=== PATIENT | female | born 1940 | race Caucasian/White ===

== ENCOUNTER 2017-10-21 17:03 | Inpatient (IN) | payer MEDICARE, MEDICAID ==
[~2017-10-21] VITALS: Ht 162.6 cm; Wt 48.1 kg
[2017-10-21] MEDS ORDERED: SODIUM CHLORIDE FLUSH 10ML SYR IVF ONE (18:00)
[2017-10-21] MEDS ORDERED: SODIUM CHLORIDE 0.9% 1,000ML IVBOLUS ONE (18:00)
[2017-10-21] MEDS: NYSTATIN 500,000 UNITS/5 ML UDC PO SCH ×2 (18:13→23:36)
[2017-10-21 18:28] LABS: BASOPHILS # (AUTO) 0.06 x10^3/uL (0-0.1); BASOPHILS % (AUTO) 1 % (0-1); EOSINOPHILS # (AUTO) 0.13 x10^3/uL (0-0.4); EOSINOPHILS % (AUTO) 2 % (1-7); LYMPHOCYTES # (AUTO) 2.81 x10^3/uL (1-3.4); LYMPHOCYTES % (AUTO) 38 % (22-44); MD NO; MEAN CORPUSCULAR HEMOGLOBIN 31.2 pg (27.0-34.8); MEAN CORPUSCULAR HGB CONC 32.5 g/dL (32.4-35.8); MEAN CORPUSCULAR VOLUME 96.1 fL (80-100); MEAN PLATELET VOLUME 8.4 fL (7.4-10.4); MONOCYTES # (AUTO) 0.74 x10^3/uL (0.2-0.8); MONOCYTES % (AUTO) 10 % (2-9); NEUTROPHILS % (AUTO) 50 % (42-75); PLATELET COUNT 359 x10^3/uL (130-400); RED BLOOD COUNT 3.56 x10^6/uL (3.82-5.3); RED CELL DISTRIBUTION WIDTH 16.2 % (9.6-15.2)
[2017-10-21 18:34] LABS: ALBUMIN 2.2 g/dL (3.4-5.0); ANION GAP 7 mmol/L (5-15); CHLORIDE 107 mmol/L (98-107)
[2017-10-21 18:35] LABS: SALICYLATE LEVEL < 1.7 mg/dL (2.8-20.0)
[2017-10-21 18:40] LABS: ACETAMINOPHEN 6 mcg/mL (10-30); ALANINE AMINOTRANSFERASE 33 U/L (12-78); ALKALINE PHOSPHATASE 187 U/L (45-117); BILIRUBIN,TOTAL 0.4 mg/dL (0.2-1.0); CREATININE 0.46 mg/dL (0.55-1.02); TROPONIN I < 0.015 ng/mL (0.000-0.045)
[2017-10-21 19:01] LABS: MICROSCOPIC NOT IND
[2017-10-21 19:05] LABS: CULTURE INDICATED? NO
[2017-10-21] MEDS ORDERED: VENL37.52 PO (19:22)
[2017-10-21] MEDS ORDERED: ATOR10TA9 PO (19:23)
[2017-10-21] MEDS ORDERED: METF100P3 PO (19:24)
[2017-10-21] MEDS ORDERED: OXYB5TAB33 PO (19:25)
[2017-10-21] MEDS ORDERED: NYST1POW PO (19:26)
[2017-10-21] MEDS ORDERED: FAMO10TA77 PO (19:27)
[2017-10-21] MEDS: CLOTRIMAZOLE TROCHES 10 MG PO SCH (21:00)
[2017-10-21] MEDS: INSULIN LISPRO 100 UNITS/ML, PEN SQ-INSULIN SCH (21:00)
[2017-10-21] MEDS: OXYBUTYNIN CHLORIDE 5 MG TABLET PO SCH (21:00)
[2017-10-21] MEDS ORDERED: ACETAMINOPHEN 325 MG TABLET PO PRN (21:00)
[2017-10-21] MEDS ORDERED: hydrALAzine 20 MG/ML, 1ML IVPush PRN (21:00)
[2017-10-21 21:47] VITALS: BP 147/71
[2017-10-21 22:00] VITALS: BP 147/71
[2017-10-21] MEDS: D5%-0.45% NACL 1,000 ML IV SCH (22:36)
[2017-10-21] MEDS: ENOXAPARIN 40 MG/0.4 ML SQ SCH (22:45)
[2017-10-21] MEDS ORDERED: FLUCONAZOLE 200 MG/100 ML 100 ML IV ONE (23:38)
[2017-10-22 02:59] VITALS: BP 119/54
[2017-10-22] MEDS: NYSTATIN 500,000 UNITS/5 ML UDC PO SCH (05:36)
[2017-10-22] MEDS: CLOTRIMAZOLE TROCHES 10 MG PO SCH ×5 (05:46→20:54)
[2017-10-22] MEDS: INSULIN LISPRO 100 UNITS/ML, PEN SQ-INSULIN SCH ×3 (07:00→21:00)
[2017-10-22 08:44] VITALS: BP 122/61
[2017-10-22] MEDS: OXYBUTYNIN CHLORIDE 5 MG TABLET PO SCH ×2 (09:00→20:54)
[2017-10-22] MEDS: MICAFUNGIN 100 MG in SODIUM CHLORIDE 0.9% 100 ML IV SCH (10:14)
[2017-10-22] MEDS: D5%-0.45% NACL 1,000 ML IV SCH (12:35)
[2017-10-22 14:27] VITALS: BP 144/70
[2017-10-22 17:21] LABS: CLOSTRIDIUM DIFFICILE ANTIGEN POSITIVE; CLOSTRIDIUM DIFFICILE TOXIN NEGATIVE (Negative)
[2017-10-22] MEDS: metroNIDAZOLE 500 MG TABLET PO SCH ×2 (17:58→20:53)
[2017-10-22 19:10] VITALS: BP 137/66
[2017-10-22] MEDS ORDERED: METRONIDAZOLE PMX 500MG/100ML 100 ML IV ONE (21:00)
[2017-10-22] MEDS: ENOXAPARIN 40 MG/0.4 ML SQ SCH (21:29)
[2017-10-23] MEDS ORDERED: FLUCONAZOLE 100MG/50ML 100 MG in BAG 1 EACH IV SCH
[2017-10-23] MEDS: D5%-0.45% NACL 1,000 ML IV SCH (00:35)
[2017-10-23 01:07] VITALS: BP 129/62
[2017-10-23] MEDS: INSULIN LISPRO 100 UNITS/ML, PEN SQ-INSULIN SCH ×4 (03:00→20:58)
[2017-10-23] MEDS: metroNIDAZOLE 500 MG TABLET PO SCH ×2 (06:00→11:00)
[2017-10-23] MEDS: CLOTRIMAZOLE TROCHES 10 MG PO SCH ×5 (06:00→20:59)
[2017-10-23 07:17] LABS: BASOPHILS # (AUTO) 0.04 x10^3/uL (0-0.1); BASOPHILS % (AUTO) 0 % (0-1); EOSINOPHILS # (AUTO) 0.04 x10^3/uL (0-0.4); EOSINOPHILS % (AUTO) 0 % (1-7); LYMPHOCYTES # (AUTO) 1.76 x10^3/uL (1-3.4); LYMPHOCYTES % (AUTO) 19 % (22-44); MD NO; MEAN CORPUSCULAR HEMOGLOBIN 30.4 pg (27.0-34.8); MEAN CORPUSCULAR HGB CONC 32.1 g/dL (32.4-35.8); MEAN CORPUSCULAR VOLUME 94.9 fL (80-100); MEAN PLATELET VOLUME 8.5 fL (7.4-10.4); MONOCYTES # (AUTO) 0.85 x10^3/uL (0.2-0.8); MONOCYTES % (AUTO) 9 % (2-9); NEUTROPHILS # (AUTO) 6.56 x10^3/uL (1.8-6.8); NEUTROPHILS % (AUTO) 71 % (42-75); PLATELET COUNT 374 x10^3/uL (130-400); RED BLOOD COUNT 3.64 x10^6/uL (3.82-5.3); RED CELL DISTRIBUTION WIDTH 15.9 % (9.6-15.2)
[2017-10-23 07:18] LABS: ALBUMIN 1.9 g/dL (3.4-5.0); ANION GAP 9 mmol/L (5-15); CHLORIDE 110 mmol/L (98-107)
[2017-10-23] MEDS: OXYBUTYNIN CHLORIDE 5 MG TABLET PO SCH ×2 (07:43→20:58)
[2017-10-23 07:46] LABS: ALANINE AMINOTRANSFERASE 23 U/L (12-78); ALKALINE PHOSPHATASE 151 U/L (45-117); BILIRUBIN,TOTAL 0.5 mg/dL (0.2-1.0); CREATININE 0.39 mg/dL (0.55-1.02); TOTAL PROTEIN 5.6 g/dL (6.4-8.2)
[2017-10-23 07:51] VITALS: BP 130/68
[2017-10-23] MEDS ORDERED: POTASSIUM CHLORIDE 80 MEQ in SODIUM CHLORIDE 0.9% 1,000 ML IV ONE (08:00)
[2017-10-23] MEDS: METRONIDAZOLE PMX 500MG/100ML 100 ML IV SCH ×3 (09:04→20:58)
[2017-10-23] MEDS: MICAFUNGIN 100 MG in SODIUM CHLORIDE 0.9% 100 ML IV SCH (11:03)
[2017-10-23 14:22] LABS: ANION GAP 7 mmol/L (5-15); CHLORIDE 112 mmol/L (98-107); CREATININE 0.34 mg/dL (0.55-1.02)
[2017-10-23 15:30] VITALS: BP 153/71
[2017-10-23] MEDS: VANCOMYCIN 50 MG/ML ORAL SUSP PO SCH (18:12)
[2017-10-23 19:11] VITALS: BP 147/68
[2017-10-23] MEDS: POTASSIUM CHLORIDE 20 MEQ in SODIUM CHLORIDE 0.45% 1,000 ML IV SCH (20:58)
[2017-10-23] MEDS: ENOXAPARIN 40 MG/0.4 ML SQ SCH (20:58)
[2017-10-24] MEDS: VANCOMYCIN 50 MG/ML ORAL SUSP PO SCH ×5 (00:13→23:52)
[2017-10-24 01:49] VITALS: BP 130/60
[2017-10-24] MEDS: METRONIDAZOLE PMX 500MG/100ML 100 ML IV SCH ×4 (03:11→20:47)
[2017-10-24] MEDS: CLOTRIMAZOLE TROCHES 10 MG PO SCH ×5 (06:00→20:47)
[2017-10-24] MEDS: INSULIN LISPRO 100 UNITS/ML, PEN SQ-INSULIN SCH (07:00)
[2017-10-24 07:54] VITALS: BP 145/73
[2017-10-24 08:21] LABS: BASOPHILS # (AUTO) 0.07 x10^3/uL (0-0.1); BASOPHILS % (AUTO) 1 % (0-1); EOSINOPHILS # (AUTO) 0.07 x10^3/uL (0-0.4); EOSINOPHILS % (AUTO) 1 % (1-7); LYMPHOCYTES # (AUTO) 1.72 x10^3/uL (1-3.4); LYMPHOCYTES % (AUTO) 32 % (22-44); MD NO; MEAN CORPUSCULAR HEMOGLOBIN 30.8 pg (27.0-34.8); MEAN CORPUSCULAR HGB CONC 32.3 g/dL (32.4-35.8); MEAN CORPUSCULAR VOLUME 95.2 fL (80-100); MEAN PLATELET VOLUME 8.9 fL (7.4-10.4); MONOCYTES # (AUTO) 0.64 x10^3/uL (0.2-0.8); MONOCYTES % (AUTO) 12 % (2-9); NEUTROPHILS # (AUTO) 2.94 x10^3/uL (1.8-6.8); NEUTROPHILS % (AUTO) 54 % (42-75); PLATELET COUNT 309 x10^3/uL (130-400); RED BLOOD COUNT 3.45 x10^6/uL (3.82-5.3); RED CELL DISTRIBUTION WIDTH 15.9 % (9.6-15.2)
[2017-10-24 08:22] LABS: HEMOGRAM NOTE RECHECKED
[2017-10-24 08:27] LABS: ANION GAP 9 mmol/L (5-15); CALCIUM 7.5 mg/dL (8.5-10.1); CHLORIDE 111 mmol/L (98-107)
[2017-10-24 08:28] LABS: CREATININE 0.36 mg/dL (0.55-1.02)
[2017-10-24] MEDS: OXYBUTYNIN CHLORIDE 5 MG TABLET PO SCH ×2 (08:56→20:47)
[2017-10-24] MEDS: POTASSIUM CHLORIDE 20 MEQ in SODIUM CHLORIDE 0.45% 1,000 ML IV SCH ×2 (08:56→23:48)
[2017-10-24] MEDS: MICAFUNGIN 100 MG in SODIUM CHLORIDE 0.9% 100 ML IV SCH (10:24)
[2017-10-24 13:16] VITALS: BP 147/72
[2017-10-24 19:43] VITALS: BP 151/68
[2017-10-24] MEDS: ENOXAPARIN 40 MG/0.4 ML SQ SCH (20:47)
[2017-10-25 01:11] VITALS: BP 164/76
[2017-10-25] MEDS: METRONIDAZOLE PMX 500MG/100ML 100 ML IV SCH (03:17)
[2017-10-25 05:38] LABS: BASOPHILS # (AUTO) 0.07 x10^3/uL (0-0.1); BASOPHILS % (AUTO) 1 % (0-1); EOSINOPHILS % (AUTO) 1 % (1-7); LYMPHOCYTES # (AUTO) 1.79 x10^3/uL (1-3.4); LYMPHOCYTES % (AUTO) 19 % (22-44); MD NO; MEAN CORPUSCULAR HEMOGLOBIN 31.4 pg (27.0-34.8); MEAN CORPUSCULAR VOLUME 95.2 fL (80-100); MEAN PLATELET VOLUME 8.1 fL (7.4-10.4); MONOCYTES # (AUTO) 0.93 x10^3/uL (0.2-0.8); MONOCYTES % (AUTO) 10 % (2-9); NEUTROPHILS # (AUTO) 6.37 x10^3/uL (1.8-6.8); NEUTROPHILS % (AUTO) 69 % (42-75); PLATELET COUNT 305 x10^3/uL (130-400); RED BLOOD COUNT 3.71 x10^6/uL (3.82-5.3); RED CELL DISTRIBUTION WIDTH 15.8 % (9.6-15.2)
[2017-10-25 05:52] LABS: CALCIUM 8.2 mg/dL (8.5-10.1); CHLORIDE 108 mmol/L (98-107)
[2017-10-25 05:56] LABS: ANION GAP 9 mmol/L (5-15); CREATININE 0.39 mg/dL (0.55-1.02)
[2017-10-25] MEDS: CLOTRIMAZOLE TROCHES 10 MG PO SCH ×5 (06:05→20:26)
[2017-10-25] MEDS: VANCOMYCIN 50 MG/ML ORAL SUSP PO SCH ×3 (06:05→18:14)
[2017-10-25] MEDS ORDERED: POTASSIUM CHLORIDE 40 MEQ in SODIUM CHLORIDE 0.9% 500 ML IV ONE (07:30)
[2017-10-25] MEDS: OXYBUTYNIN CHLORIDE 5 MG TABLET PO SCH ×2 (08:45→20:26)
[2017-10-25 08:56] VITALS: BP 130/66
[2017-10-25] MEDS: MICAFUNGIN 100 MG in SODIUM CHLORIDE 0.9% 100 ML IV SCH (10:05)
[2017-10-25 13:04] VITALS: BP 129/57
[2017-10-25 18:59] VITALS: BP 123/66
[2017-10-25] MEDS: ENOXAPARIN 40 MG/0.4 ML SQ SCH (20:26)
[2017-10-26] MEDS: VANCOMYCIN 50 MG/ML ORAL SUSP PO SCH ×4 (00:07→20:22)
[2017-10-26 01:18] VITALS: BP 128/70
[2017-10-26 05:26] LABS: BASOPHILS # (AUTO) 0.04 x10^3/uL (0-0.1); BASOPHILS % (AUTO) 1 % (0-1); EOSINOPHILS % (AUTO) 2 % (1-7); LYMPHOCYTES # (AUTO) 2.13 x10^3/uL (1-3.4); LYMPHOCYTES % (AUTO) 33 % (22-44); MD NO; MEAN CORPUSCULAR HEMOGLOBIN 31.4 pg (27.0-34.8); MEAN CORPUSCULAR VOLUME 94.9 fL (80-100); MEAN PLATELET VOLUME 8.6 fL (7.4-10.4); MONOCYTES # (AUTO) 0.85 x10^3/uL (0.2-0.8); MONOCYTES % (AUTO) 13 % (2-9); NEUTROPHILS # (AUTO) 3.36 x10^3/uL (1.8-6.8); NEUTROPHILS % (AUTO) 52 % (42-75); PLATELET COUNT 301 x10^3/uL (130-400); RED BLOOD COUNT 3.32 x10^6/uL (3.82-5.3); RED CELL DISTRIBUTION WIDTH 16.2 % (9.6-15.2)
[2017-10-26 05:29] LABS: ANION GAP 6 mmol/L (5-15); CALCIUM 7.5 mg/dL (8.5-10.1); CHLORIDE 113 mmol/L (98-107)
[2017-10-26 05:31] LABS: CREATININE 0.48 mg/dL (0.55-1.02)
[2017-10-26] MEDS: CLOTRIMAZOLE TROCHES 10 MG PO SCH ×5 (06:27→21:00)
[2017-10-26] MEDS ORDERED: POTASSIUM CHLORIDE 40 MEQ in SODIUM CHLORIDE 0.9% 500 ML IV ONE (07:30)
[2017-10-26 08:44] VITALS: BP 128/70
[2017-10-26] MEDS: OXYBUTYNIN CHLORIDE 5 MG TABLET PO SCH ×2 (11:33→20:21)
[2017-10-26] MEDS: MICAFUNGIN 100 MG in SODIUM CHLORIDE 0.9% 100 ML IV SCH (11:34)
[2017-10-26 13:14] VITALS: BP 117/70
[2017-10-26] MEDS ORDERED: MAGNESIUM SULFATE PMX 4GM/100M 100 ML IV ONE (17:30)
[2017-10-26 18:45] VITALS: BP 128/68
[2017-10-26] MEDS: ENOXAPARIN 40 MG/0.4 ML SQ SCH (20:22)
[2017-10-27 01:46] VITALS: BP 110/61
[2017-10-27] MEDS: VANCOMYCIN 50 MG/ML ORAL SUSP PO SCH ×3 (02:20→18:04)
[2017-10-27 05:30] LABS: BASOPHILS # (AUTO) 0.04 x10^3/uL (0-0.1); BASOPHILS % (AUTO) 1 % (0-1); EOSINOPHILS % (AUTO) 3 % (1-7); LYMPHOCYTES # (AUTO) 2.51 x10^3/uL (1-3.4); LYMPHOCYTES % (AUTO) 35 % (22-44); MD NO; MEAN CORPUSCULAR HEMOGLOBIN 31.7 pg (27.0-34.8); MEAN CORPUSCULAR HGB CONC 33.5 g/dL (32.4-35.8); MEAN CORPUSCULAR VOLUME 94.7 fL (80-100); MEAN PLATELET VOLUME 8.5 fL (7.4-10.4); MONOCYTES # (AUTO) 0.73 x10^3/uL (0.2-0.8); MONOCYTES % (AUTO) 10 % (2-9); NEUTROPHILS # (AUTO) 3.67 x10^3/uL (1.8-6.8); NEUTROPHILS % (AUTO) 51 % (42-75); PLATELET COUNT 274 x10^3/uL (130-400); RED BLOOD COUNT 3.41 x10^6/uL (3.82-5.3); RED CELL DISTRIBUTION WIDTH 16.5 % (9.6-15.2)
[2017-10-27 05:34] LABS: ANION GAP 7 mmol/L (5-15); CALCIUM 7.9 mg/dL (8.5-10.1); CHLORIDE 111 mmol/L (98-107); CREATININE 0.42 mg/dL (0.55-1.02)
[2017-10-27] MEDS: CLOTRIMAZOLE TROCHES 10 MG PO SCH ×2 (06:00→09:17)
[2017-10-27 06:09] VITALS: BP 113/55
[2017-10-27] MEDS: MICAFUNGIN 100 MG in SODIUM CHLORIDE 0.9% 100 ML IV SCH (09:17)
[2017-10-27] MEDS: OXYBUTYNIN CHLORIDE 5 MG TABLET PO SCH ×2 (09:17→22:33)
[2017-10-27] MEDS: HEPARIN 5,000 UNITS/ML, 1ML SQ SCH (13:00)
[2017-10-27 13:19] VITALS: BP 143/58
[2017-10-27] MEDS: NYSTATIN 500,000 UNITS/5 ML UDC PO SCH ×2 (18:04→22:33)
[2017-10-27] MEDS: LACTOBACILLUS CHEW TABLET PO SCH ×2 (18:04→22:33)
[2017-10-27 19:25] VITALS: BP 107/58
[2017-10-28 00:01] VITALS: BP 144/70
[2017-10-28] MEDS: HEPARIN 5,000 UNITS/ML, 1ML SQ SCH ×2 (00:21→13:00)
[2017-10-28] MEDS: VANCOMYCIN 50 MG/ML ORAL SUSP PO SCH ×4 (00:21→18:00)
[2017-10-28] MEDS: NYSTATIN 500,000 UNITS/5 ML UDC PO SCH ×4 (05:50→20:38)
[2017-10-28] MEDS: ASPIRIN 81 MG TABLET EC PO SCH (05:50)
[2017-10-28 07:36] VITALS: BP 153/73
[2017-10-28] MEDS: LACTOBACILLUS CHEW TABLET PO SCH ×3 (09:05→20:38)
[2017-10-28] MEDS: OXYBUTYNIN CHLORIDE 5 MG TABLET PO SCH ×2 (09:05→20:38)
[2017-10-28 14:30] VITALS: BP 126/70
[2017-10-28 19:49] VITALS: BP 137/69
[2017-10-29] MEDS: VANCOMYCIN 50 MG/ML ORAL SUSP PO SCH ×2 (00:33→06:12)
[2017-10-29] MEDS: HEPARIN 5,000 UNITS/ML, 1ML SQ SCH (01:33)
[2017-10-29 02:01] VITALS: BP 107/53
[2017-10-29] MEDS: NYSTATIN 500,000 UNITS/5 ML UDC PO SCH ×2 (06:12→09:47)
[2017-10-29] MEDS: ASPIRIN 81 MG TABLET EC PO SCH (06:12)
[2017-10-29 08:11] VITALS: BP 101/59
[2017-10-29] MEDS: LACTOBACILLUS CHEW TABLET PO SCH (09:47)
[2017-10-29] MEDS: OXYBUTYNIN CHLORIDE 5 MG TABLET PO SCH (09:47)
[2017-10-29] MEDS ORDERED: NYST1000 PO (10:26)
[2017-10-29] MEDS ORDERED: VANC1VIA3 PO (10:26)
[2017-10-29] MEDS ORDERED: ASPI-621 PO (10:26)
[2017-10-29] MEDS ORDERED: ACID1TAB7 PO (10:26)
== END 2017-10-29 11:22 | disposition home health service (06) | DRG 371 ==
LOC: ED 18:08 → EDIP 19:31 → 3NE 21:04
PROVIDERS: ADMIT Hospitalist; ATTEND Hospitalist
PROC: 0T9B70Z Drainage of Bladder with Drainage Device, Via Natural or Artificial Opening (ICD-10-PCS; principal; 2017-10-21)
DX: A04.72 Enterocolitis due to Clostridium difficile, not specified as recurrent (principal); G93.40 Encephalopathy, unspecified; E43 Unspecified severe protein-calorie malnutrition; B37.0 Candidal stomatitis; B37.81 Candidal esophagitis; E11.649 Type 2 diabetes mellitus with hypoglycemia without coma; Z68.1 Body mass index [BMI] 19.9 or less, adult; E83.42 Hypomagnesemia; D64.9 Anemia, unspecified; E87.6 Hypokalemia; F03.90 Unspecified dementia, unspecified severity, without behavioral disturbance, psychotic disturbance, mood disturbance, and anxiety; Z86.73 Personal history of transient ischemic attack (TIA), and cerebral infarction without residual deficits; Z99.3 Dependence on wheelchair
CPT/HCPCS: 36415; 70450; 71045; 80048; 80053; 80307; 80329; 81003; 82040; 82607; 82962; 83605; 83735; 84443; 84484; 85025; 87040; 87324; 87493; 93005; 99285; J1644; J1650; J2248; J3370; J3480; G0480; J1450; J3475; J7030; J7040

== ENCOUNTER 2017-11-02 09:03 | Inpatient (IN) | payer MEDICARE, MEDICAID ==
[~2017-11-02] VITALS: Ht 160 cm; Wt 47.6 kg
[~2017-11-02 09:03] MED LIST: ACID1TAB7 PO; ASPI-621 PO; ATOR10TA9 PO; FAMO10TA77 PO; METF100P3 PO; NYST1000 PO; NYST1POW PO; OXYB5TAB33 PO; VANC1VIA3 PO; VENL37.52 PO
[2017-11-02] MEDS ORDERED: LORazepam 2 MG/ML, 1ML IVPush PRN (09:30)
[2017-11-02 09:57] LABS: BASOPHILS # (AUTO) 0.05 x10^3/uL (0-0.1); BASOPHILS % (AUTO) 1 % (0-1); EOSINOPHILS # (AUTO) 0.06 x10^3/uL (0-0.4); EOSINOPHILS % (AUTO) 1 % (1-7); LYMPHOCYTES # (AUTO) 2.34 x10^3/uL (1-3.4); LYMPHOCYTES % (AUTO) 32 % (22-44); MD NO; MEAN CORPUSCULAR HEMOGLOBIN 30.9 pg (27.0-34.8); MEAN CORPUSCULAR HGB CONC 32.4 g/dL (32.4-35.8); MEAN CORPUSCULAR VOLUME 95.4 fL (80-100); MEAN PLATELET VOLUME 9.1 fL (7.4-10.4); MONOCYTES # (AUTO) 0.55 x10^3/uL (0.2-0.8); MONOCYTES % (AUTO) 8 % (2-9); NEUTROPHILS # (AUTO) 4.25 x10^3/uL (1.8-6.8); NEUTROPHILS % (AUTO) 59 % (42-75); PLATELET COUNT 297 x10^3/uL (130-400); RED BLOOD COUNT 3.55 x10^6/uL (3.82-5.3); RED CELL DISTRIBUTION WIDTH 15.9 % (9.6-15.2)
[2017-11-02 10:10] LABS: ALANINE AMINOTRANSFERASE 24 U/L (12-78); ALBUMIN 2.6 g/dL (3.4-5.0); ANION GAP 8 mmol/L (5-15); CALCIUM 8.4 mg/dL (8.5-10.1); CHLORIDE 108 mmol/L (98-107); CREATININE 0.72 mg/dL (0.55-1.02)
[2017-11-02 10:12] LABS: ALKALINE PHOSPHATASE 92 U/L (45-117); BILIRUBIN,TOTAL 0.2 mg/dL (0.2-1.0); TOTAL PROTEIN 6.3 g/dL (6.4-8.2)
[2017-11-02 11:13] LABS: CULTURE INDICATED? YES; MICROSCOPIC INDICATED
[2017-11-02 11:25] LABS: AMPHETAMINE SCREEN, URINE Negative (Negative); BARBITURATE SCREEN, URINE Negative (Negative); BENZODIAZEPINE SCREEN, URINE Negative (Negative); CANNABINOID SCREEN, URINE Negative (Negative); COCAINE SCREEN, URINE Negative (Negative); METHADONE SCREEN, URINE Negative (Negative); OPIATE SCREEN, URINE Negative (Negative)
[2017-11-02] MEDS ORDERED: LEVETIRACETAM 1,000 MG in SODIUM CHLORIDE 0.9% 100 ML IV ONE (11:30)
[2017-11-02] MEDS ORDERED: hydrALAzine 20 MG/ML, 1ML IVPush PRN (13:00)
[2017-11-02] MEDS ORDERED: DOCUSATE 100 MG CAPSULE PO PRN (13:00)
[2017-11-02] MEDS ORDERED: DEXTROSE 50%, 50ML SYRINGE IVPush PRN (13:00)
[2017-11-02] MEDS ORDERED: ACETAMINOPHEN 325 MG TABLET PO PRN (13:00)
[2017-11-02] MEDS ORDERED: ONDANSETRON 2MG/ML, 2ML IVPush PRN (13:00)
[2017-11-02] MEDS ORDERED: BISACODYL 10 MG SUPP PR PRN (13:00)
[2017-11-02] MEDS ORDERED: GLUCAGON 1 MG IM PRN (13:00)
[2017-11-02] MEDS ORDERED: ENALAPRILAT 1.25 MG/ML, 2ML IVPush PRN (13:00)
[2017-11-02] MEDS ORDERED: POLYETHYLENE GLYCOL 17 GM PACKET PO PRN (13:00)
[2017-11-02] MEDS ORDERED: DEXTROSE 4 GM TAB.CHEW PO PRN (13:00)
[2017-11-02] MEDS ORDERED: PLEASE ENTER HEIGHT AND WEIGHT MC SCH (13:30)
[2017-11-02] MEDS ORDERED: ENOXAPARIN 40 MG/0.4 ML ONE (13:40)
[2017-11-02 13:47] VITALS: BP 133/74
[2017-11-02] MEDS: SODIUM CHLORIDE 0.9% 1,000 ML IV SCH ×2 (13:48→23:58)
[2017-11-02] MEDS: ENOXAPARIN 40 MG/0.4 ML SQ SCH (13:48)
[2017-11-02] MEDS: CEFTRIAXONE PMX 1GM/50ML 50 ML IV SCH (14:15)
[2017-11-02] MEDS: INSULIN LISPRO 100 UNITS/ML, PEN SQ-INSULIN SCH ×2 (16:00→21:00)
[2017-11-02] MEDS: NYSTATIN 500,000 UNITS/5 ML UDC PO SCH ×2 (16:00→21:00)
[2017-11-02] MEDS ORDERED: LORazepam 2 MG/ML, 1ML IVPush STA (16:20)
[2017-11-02] MEDS ORDERED: PHENYTOIN SODIUM 1,000 MG in SODIUM CHLORIDE 0.9% 100 ML IV ONE (16:30)
[2017-11-02] MEDS ORDERED: FILTER 0.22 MICRON IV ONE (16:30)
[2017-11-02 18:22] VITALS: BP 112/61
[2017-11-02] MEDS: SODIUM CHLORIDE FLUSH 10ML SYR IVF SCH (21:53)
[2017-11-02] MEDS: PHENYTOIN SODIUM 50 MG/ML, 2ML IVPush SCH (21:53)
[2017-11-03 01:12] VITALS: BP 96/55
[2017-11-03 05:47] LABS: ANION GAP 5 mmol/L (5-15); BASOPHILS # (AUTO) 0.07 x10^3/uL (0-0.1); BASOPHILS % (AUTO) 1 % (0-1); CHLORIDE 112 mmol/L (98-107); EOSINOPHILS # (AUTO) 0.07 x10^3/uL (0-0.4); EOSINOPHILS % (AUTO) 1 % (1-7); LYMPHOCYTES # (AUTO) 2.35 x10^3/uL (1-3.4); LYMPHOCYTES % (AUTO) 28 % (22-44); MD NO; MEAN CORPUSCULAR HEMOGLOBIN 31.6 pg (27.0-34.8); MEAN CORPUSCULAR HGB CONC 32.8 g/dL (32.4-35.8); MEAN CORPUSCULAR VOLUME 96.5 fL (80-100); MEAN PLATELET VOLUME 9.6 fL (7.4-10.4); MONOCYTES # (AUTO) 0.91 x10^3/uL (0.2-0.8); MONOCYTES % (AUTO) 11 % (2-9); NEUTROPHILS # (AUTO) 5.03 x10^3/uL (1.8-6.8); NEUTROPHILS % (AUTO) 60 % (42-75); PLATELET COUNT 238 x10^3/uL (130-400); RED BLOOD COUNT 3.04 x10^6/uL (3.82-5.3); RED CELL DISTRIBUTION WIDTH 15.7 % (9.6-15.2)
[2017-11-03 05:56] LABS: ALANINE AMINOTRANSFERASE 18 U/L (12-78); ALBUMIN 2.1 g/dL (3.4-5.0); ALKALINE PHOSPHATASE 73 U/L (45-117); BILIRUBIN,TOTAL 0.2 mg/dL (0.2-1.0); CREATININE 0.47 mg/dL (0.55-1.02); TOTAL PROTEIN 5.2 g/dL (6.4-8.2)
[2017-11-03] MEDS: NYSTATIN 500,000 UNITS/5 ML UDC PO SCH ×4 (06:00→21:08)
[2017-11-03] MEDS: INSULIN LISPRO 100 UNITS/ML, PEN SQ-INSULIN SCH ×4 (07:00→21:00)
[2017-11-03 08:00] VITALS: BP 75/31
[2017-11-03] MEDS: SODIUM CHLORIDE 0.9% 1,000 ML IV SCH (08:00)
[2017-11-03] MEDS: PHENYTOIN SODIUM 50 MG/ML, 2ML IVPush SCH (08:32)
[2017-11-03] MEDS: SODIUM CHLORIDE FLUSH 10ML SYR IVF SCH ×2 (08:33→21:09)
[2017-11-03 10:37] VITALS: BP 75/31
[2017-11-03] MEDS: D5%-0.45% NACL 1,000 ML IV SCH ×2 (12:30→21:26)
[2017-11-03] MEDS ORDERED: SODIUM CHLORIDE 0.9%, 500ML IVBOLUS ONE (12:30)
[2017-11-03] MEDS: LEVETIRACETAM 500 MG in SODIUM CHLORIDE 0.9% 100 ML IV SCH (12:31)
[2017-11-03] MEDS: ENOXAPARIN 40 MG/0.4 ML SQ SCH (13:07)
[2017-11-03] MEDS: CEFTRIAXONE PMX 1GM/50ML 50 ML IV SCH (13:07)
[2017-11-03 14:00] VITALS: BP 90/46
[2017-11-03] MEDS: LACTOBACILLUS CHEW TABLET PO SCH ×2 (16:00→21:08)
[2017-11-03 18:20] VITALS: BP 96/45
[2017-11-03] MEDS ORDERED: ATORVASTATIN 10 MG TABLET PO SCH (21:00)
[2017-11-04] MEDS: LEVETIRACETAM 500 MG in SODIUM CHLORIDE 0.9% 100 ML IV SCH ×2 (00:26→12:30)
[2017-11-04 01:40] VITALS: BP 92/55
[2017-11-04 05:35] LABS: ANION GAP 5 mmol/L (5-15); CALCIUM 7.8 mg/dL (8.5-10.1); CHLORIDE 111 mmol/L (98-107); CREATININE 0.41 mg/dL (0.55-1.02); TOTAL IRON BINDING CAPACITY 176 mcg/dL (250-450)
[2017-11-04 05:40] LABS: TRANSFERRIN 148 mg/dL (200-360)
[2017-11-04 05:41] LABS: % IRON SATURATION 23 % (20-55); IRON LEVEL 41 mcg/dL (50-170)
[2017-11-04 05:50] LABS: BASOPHILS # (AUTO) 0.03 x10^3/uL (0-0.1); BASOPHILS % (AUTO) 1 % (0-1); EOSINOPHILS # (AUTO) 0.15 x10^3/uL (0-0.4); EOSINOPHILS % (AUTO) 3 % (1-7); LYMPHOCYTES # (AUTO) 1.63 x10^3/uL (1-3.4); LYMPHOCYTES % (AUTO) 28 % (22-44); MD NO; MEAN CORPUSCULAR HEMOGLOBIN 31.7 pg (27.0-34.8); MEAN CORPUSCULAR HGB CONC 32.7 g/dL (32.4-35.8); MEAN CORPUSCULAR VOLUME 96.8 fL (80-100); MEAN PLATELET VOLUME 9.5 fL (7.4-10.4); MONOCYTES # (AUTO) 0.49 x10^3/uL (0.2-0.8); MONOCYTES % (AUTO) 8 % (2-9); NEUTROPHILS # (AUTO) 3.52 x10^3/uL (1.8-6.8); NEUTROPHILS % (AUTO) 60 % (42-75); PLATELET COUNT 205 x10^3/uL (130-400); RED BLOOD COUNT 2.97 x10^6/uL (3.82-5.3); RED CELL DISTRIBUTION WIDTH 15.5 % (9.6-15.2)
[2017-11-04] MEDS: NYSTATIN 500,000 UNITS/5 ML UDC PO SCH ×2 (05:53→12:41)
[2017-11-04] MEDS ORDERED: ASPIRIN 81 MG TABLET EC PO SCH (06:00)
[2017-11-04] MEDS: INSULIN LISPRO 100 UNITS/ML, PEN SQ-INSULIN SCH ×2 (07:00→12:44)
[2017-11-04 07:21] VITALS: BP 96/58
[2017-11-04] MEDS ORDERED: VENLAFAXINE XR 37.5MG CAP.ER.24H PO SCH (09:00)
[2017-11-04] MEDS: LACTOBACILLUS CHEW TABLET PO SCH (09:41)
[2017-11-04] MEDS: D5%-0.45% NACL 1,000 ML IV SCH (09:42)
[2017-11-04] MEDS: SODIUM CHLORIDE FLUSH 10ML SYR IVF SCH (09:42)
[2017-11-04] MEDS ORDERED: LEVE500T53 PO (11:19)
[2017-11-04] MEDS ORDERED: CEFD300C37 PO (11:19)
[2017-11-04] MEDS: CEFTRIAXONE PMX 1GM/50ML 50 ML IV SCH (13:00)
[2017-11-04] MEDS: ENOXAPARIN 40 MG/0.4 ML SQ SCH (13:00)
== END 2017-11-04 14:36 | disposition home or self-care (01) | DRG 100 ==
LOC: ED 11:15 → EDIP 11:23 → 4WST 13:13
PROVIDERS: ADMIT Internal Medicine; ATTEND Internal Medicine
PROC: 4A00X4Z Measurement of Central Nervous Electrical Activity, External Approach (ICD-10-PCS; 2017-11-02)
PROC: 0T9B70Z Drainage of Bladder with Drainage Device, Via Natural or Artificial Opening (ICD-10-PCS; 2017-11-02)
PROC: 4A00X4Z Measurement of Central Nervous Electrical Activity, External Approach (ICD-10-PCS; principal; 2017-11-03)
DX: G40.A01 Absence epileptic syndrome, not intractable, with status epilepticus (principal); E43 Unspecified severe protein-calorie malnutrition; I95.9 Hypotension, unspecified; B37.0 Candidal stomatitis; E11.649 Type 2 diabetes mellitus with hypoglycemia without coma; R53.2 Functional quadriplegia; I69.959 Hemiplegia and hemiparesis following unspecified cerebrovascular disease affecting unspecified side; B96.1 Klebsiella pneumoniae [K. pneumoniae] as the cause of diseases classified elsewhere; N39.0 Urinary tract infection, site not specified; Z68.1 Body mass index [BMI] 19.9 or less, adult; D64.9 Anemia, unspecified; E11.9 Type 2 diabetes mellitus without complications; F03.90 Unspecified dementia, unspecified severity, without behavioral disturbance, psychotic disturbance, mood disturbance, and anxiety; F32.9 Major depressive disorder, single episode, unspecified; I10 Essential (primary) hypertension; Z66 Do not resuscitate
CPT/HCPCS: 36415; 70450; 70551; 71045; 80048; 80053; 80185; 80307; 81001; 82040; 82140; 82728; 82962; 83036; 83540; 83550; 83735; 84100; 84466; 85025; 87040; 87077; 87086; 87186; 93005; 95813; 95816; 95819; 99285; J0696; J1165; J1650; J1953; J2405; J1815; J2060; J7030; J7040

== ENCOUNTER 2017-11-18 16:32 | Inpatient (IN) | payer MEDICARE, MEDICAID ==
[~2017-11-18] VITALS: Ht 165.1 cm; Wt 49.2 kg
[~2017-11-18 16:32] MED LIST changes: +CEFD300C37 PO; +LEVE500T53 PO
[2017-11-18] MEDS ORDERED: SODIUM CHLORIDE FLUSH 10ML SYR IVF ONE (17:30)
[2017-11-18] MEDS ORDERED: OXYB5TAB7 PO (17:37)
[2017-11-18] MEDS ORDERED: METF500T4 PO (17:37)
[2017-11-18] MEDS ORDERED: HYDR-3237 PO (17:37)
[2017-11-18] MEDS ORDERED: FAMO20TA7 PO (17:37)
[2017-11-18 17:58] LABS: ALANINE AMINOTRANSFERASE 20 U/L (12-78); ALBUMIN 2.8 g/dL (3.4-5.0); ANION GAP 8 mmol/L (5-15); CALCIUM 8.9 mg/dL (8.5-10.1); CHLORIDE 110 mmol/L (98-107); CREATININE 0.78 mg/dL (0.55-1.02)
[2017-11-18 18:03] LABS: ALKALINE PHOSPHATASE 107 U/L (45-117); BILIRUBIN,TOTAL 0.1 mg/dL (0.2-1.0); TOTAL PROTEIN 6.7 g/dL (6.4-8.2); TROPONIN I < 0.015 ng/mL (0.000-0.045)
[2017-11-18 18:12] LABS: BASOPHILS # (AUTO) 0.04 x10^3/uL (0-0.1); BASOPHILS % (AUTO) 1 % (0-1); EOSINOPHILS # (AUTO) 0.15 x10^3/uL (0-0.4); EOSINOPHILS % (AUTO) 2 % (1-7); LYMPHOCYTES # (AUTO) 1.62 x10^3/uL (1-3.4); LYMPHOCYTES % (AUTO) 25 % (22-44); MD NO; MEAN CORPUSCULAR HEMOGLOBIN 32.2 pg (27.0-34.8); MEAN CORPUSCULAR VOLUME 97.4 fL (80-100); MEAN PLATELET VOLUME 9.3 fL (7.4-10.4); MONOCYTES # (AUTO) 0.61 x10^3/uL (0.2-0.8); MONOCYTES % (AUTO) 9 % (2-9); NEUTROPHILS % (AUTO) 63 % (42-75); PLATELET COUNT 228 x10^3/uL (130-400); RED BLOOD COUNT 3.71 x10^6/uL (3.82-5.3); RED CELL DISTRIBUTION WIDTH 15.7 % (9.6-15.2)
[2017-11-18 18:36] LABS: CULTURE INDICATED? YES; MICROSCOPIC INDICATED
[2017-11-18] MEDS ORDERED: POLYETHYLENE GLYCOL 17 GM PACKET PO PRN (19:30)
[2017-11-18] MEDS ORDERED: ACETAMINOPHEN 325 MG TABLET PO PRN (19:30)
[2017-11-18] MEDS ORDERED: hydrALAzine 20 MG/ML, 1ML IVPush PRN (19:30)
[2017-11-18] MEDS ORDERED: ONDANSETRON ODT 4 MG PO PRN (19:30)
[2017-11-18 22:00] VITALS: BP 132/76
[2017-11-19] MEDS: ATORVASTATIN 10 MG TABLET PO SCH ×2 (00:24→20:36)
[2017-11-19] MEDS: FAMOTIDINE 20 MG TABLET PO SCH ×3 (00:24→20:36)
[2017-11-19] MEDS: OXYBUTYNIN CHLORIDE 5 MG TABLET PO SCH ×4 (00:24→20:36)
[2017-11-19] MEDS: LEVETIRACETAM 500 MG TABLET PO SCH ×3 (00:24→20:37)
[2017-11-19] MEDS: HEPARIN 5,000 UNITS/ML, 1ML SQ SCH ×3 (00:25→17:27)
[2017-11-19] MEDS: SODIUM CHLORIDE 0.9% 1,000 ML IV SCH (00:25)
[2017-11-19] MEDS: NYSTATIN 500,000 UNITS/5 ML UDC PO SCH ×5 (00:25→20:36)
[2017-11-19 00:39] VITALS: BP 125/64
[2017-11-19] MEDS: ASPIRIN 81 MG TABLET EC PO SCH (06:04)
[2017-11-19 06:41] VITALS: BP 137/67
[2017-11-19] MEDS: metFORMIN 500 MG TABLET PO SCH (09:32)
[2017-11-19] MEDS: VENLAFAXINE XR 37.5MG CAP.ER.24H PO SCH (09:33)
[2017-11-19 14:17] VITALS: BP 105/59
[2017-11-19 19:02] VITALS: BP 121/66
[2017-11-20] MEDS: HEPARIN 5,000 UNITS/ML, 1ML SQ SCH ×3 (00:58→17:12)
[2017-11-20 01:15] VITALS: BP 128/70
[2017-11-20] MEDS: SODIUM CHLORIDE 0.9% 1,000 ML IV SCH ×2 (04:52→17:16)
[2017-11-20] MEDS: ASPIRIN 81 MG TABLET EC PO SCH (05:40)
[2017-11-20] MEDS: NYSTATIN 500,000 UNITS/5 ML UDC PO SCH ×4 (05:40→20:26)
[2017-11-20 06:33] VITALS: BP 130/68
[2017-11-20] MEDS: VENLAFAXINE XR 37.5MG CAP.ER.24H PO SCH (09:35)
[2017-11-20] MEDS: metFORMIN 500 MG TABLET PO SCH (09:35)
[2017-11-20] MEDS: OXYBUTYNIN CHLORIDE 5 MG TABLET PO SCH ×3 (09:35→20:26)
[2017-11-20] MEDS: LEVETIRACETAM 500 MG TABLET PO SCH ×2 (09:35→20:26)
[2017-11-20] MEDS: FAMOTIDINE 20 MG TABLET PO SCH ×2 (09:35→20:26)
[2017-11-20] MEDS: CEFTRIAXONE PMX 1GM/50ML 50 ML IV SCH (09:39)
[2017-11-20 14:06] VITALS: BP 122/67
[2017-11-20 19:11] VITALS: BP 119/64
[2017-11-20] MEDS: ATORVASTATIN 10 MG TABLET PO SCH (20:26)
[2017-11-21] MEDS: HEPARIN 5,000 UNITS/ML, 1ML SQ SCH ×3 (00:30→16:44)
[2017-11-21 01:22] VITALS: BP 119/88
[2017-11-21] MEDS: NYSTATIN 500,000 UNITS/5 ML UDC PO SCH ×3 (06:06→16:44)
[2017-11-21] MEDS: ASPIRIN 81 MG TABLET EC PO SCH (06:06)
[2017-11-21] MEDS: SODIUM CHLORIDE 0.9% 1,000 ML IV SCH (06:07)
[2017-11-21] MEDS: FAMOTIDINE 20 MG TABLET PO SCH (07:52)
[2017-11-21] MEDS: VENLAFAXINE XR 37.5MG CAP.ER.24H PO SCH (07:52)
[2017-11-21] MEDS: OXYBUTYNIN CHLORIDE 5 MG TABLET PO SCH ×2 (07:52→16:44)
[2017-11-21] MEDS: LEVETIRACETAM 500 MG TABLET PO SCH (07:52)
[2017-11-21] MEDS: metFORMIN 500 MG TABLET PO SCH (07:52)
[2017-11-21 08:53] VITALS: BP 99/51
[2017-11-21] MEDS: CEFTRIAXONE PMX 1GM/50ML 50 ML IV SCH (09:00)
[2017-11-21] MEDS ORDERED: POLY17PO5 PO (13:42)
[2017-11-21 14:32] VITALS: BP 126/69
== END 2017-11-21 17:24 | disposition home or self-care (01) | DRG 205 ==
LOC: ED 16:55 → EDIP 18:39 → 3NE 20:00
PROVIDERS: ADMIT Hospitalist; ATTEND Hospitalist
PROC: 0T9B70Z Drainage of Bladder with Drainage Device, Via Natural or Artificial Opening (ICD-10-PCS; principal; 2017-11-18)
DX: T17.998A Other foreign object in respiratory tract, part unspecified causing other injury, initial encounter (principal); E43 Unspecified severe protein-calorie malnutrition; G93.40 Encephalopathy, unspecified; F05 Delirium due to known physiological condition; N39.0 Urinary tract infection, site not specified; Z68.1 Body mass index [BMI] 19.9 or less, adult; E11.9 Type 2 diabetes mellitus without complications; F01.50 Vascular dementia, unspecified severity, without behavioral disturbance, psychotic disturbance, mood disturbance, and anxiety; I10 Essential (primary) hypertension; F32.9 Major depressive disorder, single episode, unspecified; R56.9 Unspecified convulsions; I69.320 Aphasia following cerebral infarction; Z88.2 Allergy status to sulfonamides
CPT/HCPCS: 36415; 70450; 71045; 80053; 81001; 83605; 84484; 85025; 87040; 87086; 93005; 99285; J0696; J1644; J7030

== ENCOUNTER 2017-12-10 10:14 | Emergency (ER) | payer MEDICARE, MEDICAID ==
[~2017-12-10] VITALS: Ht 152.4 cm; Wt 50.0 kg
[~2017-12-10 10:14] MED LIST changes: +FAMO20TA7 PO; +HYDR-3237 PO; +METF500T5 PO; +OXYB5TAB7 PO; +POLY17PO5 PO
[2017-12-10 11:09] LABS: INTERNATIONAL NORMALIZED RATIO 0.98 (0.93-1.1); PROTHROMBIN TIME 10.2 Seconds (9.6-11.5)
[2017-12-10 11:10] LABS: ALBUMIN 2.8 g/dL (3.4-5.0); ANION GAP 6 mmol/L (5-15); CHLORIDE 108 mmol/L (98-107)
[2017-12-10 11:15] LABS: MICROSCOPIC NOT IND
[2017-12-10 11:16] LABS: ALANINE AMINOTRANSFERASE 16 U/L (12-78); ALKALINE PHOSPHATASE 67 U/L (45-117); BILIRUBIN,TOTAL 0.2 mg/dL (0.2-1.0); CREATININE 0.67 mg/dL (0.55-1.02); TOTAL PROTEIN 6.3 g/dL (6.4-8.2); TROPONIN I < 0.015 ng/mL (0.000-0.045)
[2017-12-10] MEDS ORDERED: METHYLNALTREXONE 12 MG/0.6 ML SQ ONE ×2 (11:27→11:30)
[2017-12-10 11:31] LABS: CULTURE INDICATED? NO
[2017-12-10 11:37] LABS: MEAN CORPUSCULAR HEMOGLOBIN 31.7 pg (27.0-34.8); MEAN CORPUSCULAR HGB CONC 32.8 g/dL (32.4-35.8); MEAN CORPUSCULAR VOLUME 96.7 fL (80-100); MEAN PLATELET VOLUME 9.5 fL (7.4-10.4); PLATELET COUNT 218 x10^3/uL (130-400); RED BLOOD COUNT 3.87 x10^6/uL (3.82-5.3)
[2017-12-10 11:58] LABS: BASOPHILS # (AUTO) 0.05 x10^3/uL (0-0.1); BASOPHILS % (AUTO) 1 % (0-1); EOSINOPHILS % (AUTO) 3 % (1-7); LYMPHOCYTES % (AUTO) 34 % (22-44); MD SCAN; MONOCYTES # (AUTO) 0.35 x10^3/uL (0.2-0.8); MONOCYTES % (AUTO) 5 % (2-9); NEUTROPHILS # (AUTO) 4.16 x10^3/uL (1.8-6.8); NEUTROPHILS % (AUTO) 58 % (42-75)
[2017-12-10 12:24] VITALS: BP 139/57
== END 2017-12-10 13:22 | disposition home or self-care (01) ==
LOC: ED 10:18
DX: K59.09 Other constipation (principal); E11.9 Type 2 diabetes mellitus without complications; I10 Essential (primary) hypertension; Z86.73 Personal history of transient ischemic attack (TIA), and cerebral infarction without residual deficits
CPT/HCPCS: 36415; 74022; 80053; 81003; 83690; 83880; 84484; 85025; 85610; 85730; 93005; 96372; 99285

== ENCOUNTER 2017-12-17 15:03 | Emergency (ER) | payer MEDICARE, MEDICAID ==
[~2017-12-17] VITALS: Ht 170.2 cm; Wt 54.0 kg
[2017-12-17 15:27] LABS: BASOPHILS # (AUTO) 0.07 x10^3/uL (0-0.1); BASOPHILS % (AUTO) 1 % (0-1); EOSINOPHILS # (AUTO) 0.17 x10^3/uL (0-0.4); EOSINOPHILS % (AUTO) 3 % (1-7); LYMPHOCYTES # (AUTO) 2.42 x10^3/uL (1-3.4); LYMPHOCYTES % (AUTO) 37 % (22-44); MD NO; MEAN CORPUSCULAR HEMOGLOBIN 31.5 pg (27.0-34.8); MEAN CORPUSCULAR HGB CONC 32.6 g/dL (32.4-35.8); MEAN CORPUSCULAR VOLUME 96.6 fL (80-100); MEAN PLATELET VOLUME 9.4 fL (7.4-10.4); MONOCYTES # (AUTO) 0.65 x10^3/uL (0.2-0.8); MONOCYTES % (AUTO) 10 % (2-9); NEUTROPHILS # (AUTO) 3.25 x10^3/uL (1.8-6.8); NEUTROPHILS % (AUTO) 50 % (42-75); PLATELET COUNT 216 x10^3/uL (130-400); RED BLOOD COUNT 3.64 x10^6/uL (3.82-5.3); RED CELL DISTRIBUTION WIDTH 13.5 % (9.6-15.2)
[2017-12-17 15:35] LABS: ALBUMIN 2.7 g/dL (3.4-5.0); ANION GAP 5 mmol/L (5-15); CALCIUM 8.5 mg/dL (8.5-10.1); CHLORIDE 110 mmol/L (98-107); CREATININE 0.63 mg/dL (0.55-1.02)
[2017-12-17] MEDS ORDERED: PINK LADY ENEMA 490 ML BOTTLE PR ONE (16:00)
[2017-12-17 16:07] LABS: CULTURE INDICATED? YES; MICROSCOPIC INDICATED
[2017-12-17 19:16] VITALS: BP 98/56
== END 2017-12-17 19:18 | disposition home or self-care (01) ==
LOC: ED 18:43
DX: K56.41 Fecal impaction (principal); N30.00 Acute cystitis without hematuria; E11.9 Type 2 diabetes mellitus without complications; I10 Essential (primary) hypertension
CPT/HCPCS: 36415; 74021; 80048; 81001; 82040; 85025; 87077; 87086; 87186; 99285

== ENCOUNTER 2018-10-11 14:26 | Emergency (ER) | payer MEDICARE, MEDICAID ==
[~2018-10-11] VITALS: Ht 167.6 cm; Wt 57.0 kg
[~2018-10-11 14:26] MED LIST changes: +AMOX1TAB64 PO; -ASPI-621 PO; +ASPI81TA45 PO; +FAMO-79 PO; +HYDR-3652 PO; +METF500T17 PO; -METF500T5 PO; +VENL75CA PO
[2018-10-11 14:30] VITALS: BP 110/73
--- NOTE | 2018-10-11 15:41 | NUR ---
PT BACK FROM XRAY, SON AT BEDSIDE. PT A&O TO PERSON, THIS IS BASELINE PER SON. PT HAS HX CVA WITH RIGHT DEFICITS, AT BASELINE TODAY PER SON. PT ABLE TO MOVE LEFT LEG AND ARM WITH 4/5 STRENGTH. PT'S SON STATES LAST WEEK BOTH OF HER FEET BECAME PINNED UNDERNEATH SCOOTER, PT INITIALLY NOTED RIGHT FOOT PAIN AT TIME OF INCIDENT, FOR WHICH SHE WAS SEEN AT THIS FACILITY. PER SON, PT BEGAN TO COMPLAIN OF LEFT FOOT PAIN TODAY. CMS INTACT TO LEFT FOOT, FOOT WARM, PINK, CAP REFILL <3 SEC. PT ABLE TO MOVE LEFT FOOT WITHOUT DIFFICULTY OR INCREASE IN PAIN. AWAITING XRAY RESULTS AND DISPO.
--- NOTE | 2018-10-11 15:59 | NUR ---
PT AND SON (CAREGIVER) GIVEN DC INSTRUCTIONS. PT A&O TO NORM, RESPS EVEN AND UNLABORED, NO COMPLAINT AT DC. PT TO DC IN OWN WC. NADN AT DC.
== END 2018-10-11 16:00 | disposition home or self-care (01) ==
LOC: ED 15:41
DX: S93.491A Sprain of other ligament of right ankle, initial encounter (principal); I10 Essential (primary) hypertension; E11.9 Type 2 diabetes mellitus without complications; F32.9 Major depressive disorder, single episode, unspecified; Z86.73 Personal history of transient ischemic attack (TIA), and cerebral infarction without residual deficits; W23.1XXA Caught, crushed, jammed, or pinched between stationary objects, initial encounter; Y93.89 Activity, other specified; Y92.009 Unspecified place in unspecified non-institutional (private) residence as the place of occurrence of the external cause; Y99.8 Other external cause status
CPT/HCPCS: 99283

== ENCOUNTER 2019-01-27 17:42 | Emergency (ER) | payer MEDICARE, MEDICAID ==
[~2019-01-27] VITALS: Ht 170.2 cm; Wt 140.0 kg
[2019-01-27 19:31] VITALS: BP 135/50
== END 2019-01-27 19:41 | disposition home or self-care (01) ==
LOC: ED 18:40
DX: M25.552 Pain in left hip (principal); M25.551 Pain in right hip; E11.9 Type 2 diabetes mellitus without complications; I10 Essential (primary) hypertension; Z86.73 Personal history of transient ischemic attack (TIA), and cerebral infarction without residual deficits; W06.XXXA Fall from bed, initial encounter; Y93.89 Activity, other specified; Y92.098 Other place in other non-institutional residence as the place of occurrence of the external cause; Y99.8 Other external cause status
CPT/HCPCS: 72192; 99284

== ENCOUNTER 2019-07-17 19:08 | Emergency (ER) | payer MEDICARE, MEDICAID ==
[~2019-07-17] VITALS: Ht 162.6 cm; Wt 60.0 kg
[~2019-07-17 19:08] MED LIST changes: +OXYB5TAB10 PO; -OXYB5TAB7 PO
[2019-07-17 19:28] VITALS: BP 115/43
[2019-07-17 20:08] LABS: BASOPHILS # (AUTO) 0.05 x10^3/uL (0-0.1); BASOPHILS % (AUTO) 1 % (0-1); EOSINOPHILS # (AUTO) 0.33 x10^3/uL (0-0.4); EOSINOPHILS % (AUTO) 4 % (1-7); LYMPHOCYTES # (AUTO) 2.53 x10^3/uL (1-3.4); LYMPHOCYTES % (AUTO) 30 % (22-44); MD NO; MEAN CORPUSCULAR HEMOGLOBIN 31.7 pg (27.0-34.8); MEAN CORPUSCULAR HGB CONC 32.7 g/dL (32.4-35.8); MEAN CORPUSCULAR VOLUME 96.7 fL (80-100); MEAN PLATELET VOLUME 9.4 fL (7.4-10.4); MONOCYTES # (AUTO) 0.64 x10^3/uL (0.2-0.8); MONOCYTES % (AUTO) 8 % (2-9); NEUTROPHILS # (AUTO) 4.92 x10^3/uL (1.8-6.8); NEUTROPHILS % (AUTO) 58 % (42-75); PLATELET COUNT 259 x10^3/uL (130-400); RED BLOOD COUNT 4.12 x10^6/uL (3.82-5.3); RED CELL DISTRIBUTION WIDTH 13.2 % (9.6-15.2)
[2019-07-17 20:18] LABS: ALBUMIN 3.2 g/dL (3.4-5.0); ANION GAP 4 mmol/L (5-15); CALCIUM 9.1 mg/dL (8.5-10.1); CHLORIDE 109 mmol/L (98-107)
[2019-07-17 20:24] LABS: CREATININE 0.73 mg/dL (0.55-1.02)
[2019-07-17 20:25] LABS: ALANINE AMINOTRANSFERASE 13 U/L (12-78); ALKALINE PHOSPHATASE 103 U/L (45-117); BILIRUBIN,TOTAL 0.2 mg/dL (0.2-1.0); TOTAL PROTEIN 7.2 g/dL (6.4-8.2); TROPONIN I < 0.015 ng/mL (0.000-0.045)
== END 2019-07-17 21:44 ==
LOC: ED 19:30
DX: R62.7 Adult failure to thrive (principal); R53.1 Weakness; R94.31 Abnormal electrocardiogram [ECG] [EKG]
CPT/HCPCS: 36415; 71045; 80053; 84484; 85025; 93005; 99284

== ENCOUNTER 2019-08-18 11:11 | Emergency (ER) | payer MEDICAID, MEDICARE ==
[~2019-08-18] VITALS: Ht 175.3 cm; Wt 55.0 kg
[2019-08-18] MEDS ORDERED: PLEASE ENTER HEIGHT AND WEIGHT MC SCH (11:30)
[2019-08-18] MEDS ORDERED: SODIUM CHLORIDE FLUSH 10ML SYR IVF ONE (11:30)
--- NOTE | 2019-08-18 11:41 | NUR ---
BELIA. REPORT RECEIVED FROM EMS. PER SON PT HAS LOWER ABD PAIN WITH NAUSEA. HX OF STROKE WITH R SIDED WEAKNESS. PT IS ABLED TO ANSWERE YES/NO QUESTIONS AND IT IS HER BASE LINE D/T STROKE. PT SAID NO FOR ABD PAIN/NAUSEA HERE. BP/SPO2 MONITORS IN PLACE. CALL LIGHT WITHIN REACH. EDMD AT BEDSIDE TO EVALUATE AT THIS TIME.
--- NOTE | 2019-08-18 11:42 | NUR ---
PT IN XRAY AT THIS TIME.
--- NOTE | 2019-08-18 11:54 | NUR ---
PT BACK TO ROOM FROM XRAY AT THIS TIME.
--- NOTE | 2019-08-18 11:58 | NUR ---
EKG DONE AT BEDSIDE BY EMT AT THIS TIME.
[2019-08-18] MEDS ORDERED: PINK LADY ENEMA 490 ML BOTTLE PR ONE (12:00)
[2019-08-18 12:36] LABS: BASOPHILS # (AUTO) 0.04 x10^3/uL (0-0.1); BASOPHILS % (AUTO) 1 % (0-1); EOSINOPHILS # (AUTO) 0.27 x10^3/uL (0-0.4); EOSINOPHILS % (AUTO) 3 % (1-7); LYMPHOCYTES # (AUTO) 2.17 x10^3/uL (1-3.4); LYMPHOCYTES % (AUTO) 25 % (22-44); MD NO; MEAN CORPUSCULAR HEMOGLOBIN 31.8 pg (27.0-34.8); MEAN CORPUSCULAR HGB CONC 33.2 g/dL (32.4-35.8); MEAN CORPUSCULAR VOLUME 95.8 fL (80-100); MONOCYTES # (AUTO) 0.61 x10^3/uL (0.2-0.8); MONOCYTES % (AUTO) 7 % (2-9); NEUTROPHILS # (AUTO) 5.68 x10^3/uL (1.8-6.8); NEUTROPHILS % (AUTO) 65 % (42-75); PLATELET COUNT 249 x10^3/uL (130-400); RED BLOOD COUNT 4.09 x10^6/uL (3.82-5.3)
[2019-08-18 12:47] LABS: ALANINE AMINOTRANSFERASE 11 U/L (12-78); ANION GAP 5 mmol/L (5-15); CALCIUM 8.9 mg/dL (8.5-10.1); CHLORIDE 106 mmol/L (98-107); CREATININE 0.82 mg/dL (0.55-1.02)
--- NOTE | 2019-08-18 12:49 | NUR ---
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 Patient ambulatory with steady gait.
[2019-08-18 12:50] LABS: ALKALINE PHOSPHATASE 104 U/L (45-117); BILIRUBIN,TOTAL 0.2 mg/dL (0.2-1.0); TOTAL PROTEIN 6.9 g/dL (6.4-8.2)
--- NOTE | 2019-08-18 13:05 | NUR ---
pt streight cath'd using sterile technique. pt tolerated well. this rn walked to lab.
--- NOTE | 2019-08-18 13:10 | NUR ---
THIS RN WALKED TO PHARMACY TO GET P[employer] [facility].
--- NOTE | 2019-08-18 13:24 | NUR ---
PT MEDICATED PER EMAR. PT TOLERATED WELL. PT IS NOT ABLE TO USE BEDSIDE COMODE. CHUCKS/TOWELS PLACED.
[2019-08-18 13:25] LABS: MICROSCOPIC AUTO
[2019-08-18 13:26] LABS: CULTURE INDICATED? YES
[2019-08-18 13:27] VITALS: BP 117/49
--- NOTE | 2019-08-18 14:48 | NUR ---
Patient/Caregiver given discharge instructions and they have confirmed that they understand the instructions.
== END 2019-08-18 14:50 | disposition home or self-care (01) ==
LOC: ED 14:00
DX: N30.00 Acute cystitis without hematuria (principal); K59.00 Constipation, unspecified; E11.9 Type 2 diabetes mellitus without complications; Z86.73 Personal history of transient ischemic attack (TIA), and cerebral infarction without residual deficits
CPT/HCPCS: 36415; 74022; 80053; 81001; 83605; 83690; 85025; 87086; 93005; 99285

== ENCOUNTER 2019-08-27 22:38 | Observation (INO) | payer MEDICARE, MEDICAID ==
[~2019-08-27] VITALS: Ht 162.6 cm; Wt 50.1 kg
--- NOTE | 2019-08-27 22:54 | NUR ---
assessment made. per SON patient c/o Chest pain earlier. patient denies CP at this time.
--- NOTE | 2019-08-27 23:18 | NUR ---
ERP at bedside.
[2019-08-27 23:22] LABS: BASOPHILS # (AUTO) 0.05 x10^3/uL (0-0.1); BASOPHILS % (AUTO) 1 % (0-1); EOSINOPHILS # (AUTO) 0.27 x10^3/uL (0-0.4); EOSINOPHILS % (AUTO) 4 % (1-7); LYMPHOCYTES # (AUTO) 2.18 x10^3/uL (1-3.4); LYMPHOCYTES % (AUTO) 28 % (22-44); MD NO; MEAN CORPUSCULAR HEMOGLOBIN 31.5 pg (27.0-34.8); MEAN CORPUSCULAR HGB CONC 32.6 g/dL (32.4-35.8); MEAN CORPUSCULAR VOLUME 96.7 fL (80-100); MEAN PLATELET VOLUME 9.1 fL (7.4-10.4); MONOCYTES # (AUTO) 0.69 x10^3/uL (0.2-0.8); MONOCYTES % (AUTO) 9 % (2-9); NEUTROPHILS # (AUTO) 4.62 x10^3/uL (1.8-6.8); NEUTROPHILS % (AUTO) 59 % (42-75); PLATELET COUNT 224 x10^3/uL (130-400); RED BLOOD COUNT 4.06 x10^6/uL (3.82-5.3); RED CELL DISTRIBUTION WIDTH 13.6 % (9.6-15.2)
[2019-08-27 23:34] LABS: ANION GAP 3 mmol/L (5-15); CALCIUM 9.2 mg/dL (8.5-10.1); CHLORIDE 108 mmol/L (98-107); CREATININE 0.82 mg/dL (0.55-1.02)
[2019-08-27 23:38] LABS: TROPONIN I < 0.015 ng/mL (0.000-0.045)
--- NOTE | 2019-08-28 00:33 | NUR ---
ATTEMPTED TO LOCATE PTS SON TO DISCUSS ADMIT. SON NOT IN ROOM. SON NOT IN LOBBY.
[2019-08-28] MEDS ORDERED: ONDANSETRON ODT 4 MG PO PRN (01:00)
[2019-08-28] MEDS ORDERED: ONDANSETRON 2MG/ML, 2ML IVPush PRN (01:00)
[2019-08-28] MEDS ORDERED: hydrALAzine 20 MG/ML, 1ML IVPush PRN (01:00)
[2019-08-28] MEDS ORDERED: POLYETHYLENE GLYCOL 17 GM PACKET PO PRN (01:00)
[2019-08-28] MEDS ORDERED: BISACODYL 10 MG SUPP PR PRN (01:00)
[2019-08-28] MEDS ORDERED: ACETAMINOPHEN 325 MG TABLET PO PRN (01:00)
[2019-08-28] MEDS ORDERED: ENOXAPARIN 40 MG/0.4 ML SQ SCH (01:00)
--- NOTE | 2019-08-28 01:14 | NUR ---
BED ASSIGNED. REPORT TO TR STEWART.
[2019-08-28 01:24] LABS: FREE T4 (FREE THYROXINE) 0.98 ng/dL (0.76-1.46); TROPONIN I < 0.015 ng/mL (0.000-0.045)
[2019-08-28 01:48] VITALS: BP 128/59
[2019-08-28] MEDS ORDERED: ENOXAPARIN 40 MG/0.4 ML ONE (01:50)
[2019-08-28 02:14] VITALS: BP 128/59
[2019-08-28] MEDS: NYSTATIN 500,000 UNITS/5 ML UDC PO SCH ×2 (05:07→11:20)
[2019-08-28] MEDS ORDERED: ASPIRIN 81 MG TABLET EC PO SCH (06:00)
[2019-08-28 06:49] VITALS: BP 114/62
[2019-08-28 07:44] LABS: TROPONIN I < 0.015 ng/mL (0.000-0.045)
[2019-08-28] MEDS ORDERED: LEVETIRACETAM 500 MG TABLET PO SCH (09:00)
[2019-08-28] MEDS ORDERED: VENLAFAXINE 75 MG CAP ER PO SCH (09:00)
[2019-08-28] MEDS ORDERED: metFORMIN 500 MG TABLET PO SCH (09:00)
[2019-08-28] MEDS ORDERED: OXYBUTYNIN CHLORIDE 5 MG TABLET PO SCH (09:00)
[2019-08-28] MEDS ORDERED: FAMOTIDINE 20 MG TABLET PO SCH ×2 (09:00)
[2019-08-28] MEDS ORDERED: REGADENOSON 0.4 MG/5 ML SYRINGE ONE (09:26)
[2019-08-28] MEDS: INSULIN LISPRO 100 UNITS/ML, PEN SQ-INSULIN SCH ×2 (11:12→11:13)
[2019-08-28 12:44] VITALS: BP 126/79
[2019-08-28] MEDS ORDERED: POLY17PO5 PO (12:57)
[2019-08-28] MEDS ORDERED: CEFAZOLIN PMX 1GM/50ML 50 ML IV SCH (14:30)
== END 2019-08-28 13:10 | disposition home or self-care (01) ==
LOC: ED 08-28 00:31 → SUATTDRO 08-28 00:32 → INTOOBSV 08-28 01:03 → EDIP 08-28 01:03 → 4WST 08-28 01:28
PROVIDERS: ADMIT Hospitalist; ATTEND Hospitalist
DX: I63.9 Cerebral infarction, unspecified (principal); G81.91 Hemiplegia, unspecified affecting right dominant side; R07.89 Other chest pain; I69.320 Aphasia following cerebral infarction; R94.31 Abnormal electrocardiogram [ECG] [EKG]; E11.9 Type 2 diabetes mellitus without complications; I10 Essential (primary) hypertension; F01.50 Vascular dementia, unspecified severity, without behavioral disturbance, psychotic disturbance, mood disturbance, and anxiety; Z87.440 Personal history of urinary (tract) infections; Z87.19 Personal history of other diseases of the digestive system; Z86.69 Personal history of other diseases of the nervous system and sense organs; Z79.899 Other long term (current) drug therapy
CPT/HCPCS: 36415; 71045; 78452; 80048; 82040; 82962; 84439; 84443; 84484; 85025; 93005; 93017; 96372; 99285; A9502; G0378; J1650; J2785

== ENCOUNTER 2019-09-12 17:15 | Emergency (ER) | payer MEDICARE, MEDICAID ==
[~2019-09-12] VITALS: Ht 170.2 cm; Wt 60.0 kg
--- NOTE | 2019-09-12 18:00 | NUR ---
Lab at bedside
[2019-09-12 18:15] LABS: BASOPHILS # (AUTO) 0.04 x10^3/uL (0-0.1); BASOPHILS % (AUTO) 1 % (0-1); EOSINOPHILS # (AUTO) 0.28 x10^3/uL (0-0.4); EOSINOPHILS % (AUTO) 4 % (1-7); LYMPHOCYTES # (AUTO) 2.23 x10^3/uL (1-3.4); LYMPHOCYTES % (AUTO) 29 % (22-44); MD NO; MEAN CORPUSCULAR HEMOGLOBIN 31.7 pg (27.0-34.8); MEAN CORPUSCULAR HGB CONC 32.9 g/dL (32.4-35.8); MEAN CORPUSCULAR VOLUME 96.3 fL (80-100); MEAN PLATELET VOLUME 9.9 fL (7.4-10.4); MONOCYTES # (AUTO) 0.48 x10^3/uL (0.2-0.8); MONOCYTES % (AUTO) 6 % (2-9); NEUTROPHILS # (AUTO) 4.56 x10^3/uL (1.8-6.8); NEUTROPHILS % (AUTO) 60 % (42-75); PLATELET COUNT 239 x10^3/uL (130-400); RED BLOOD COUNT 4.24 x10^6/uL (3.82-5.3); RED CELL DISTRIBUTION WIDTH 13.5 % (9.6-15.2)
[2019-09-12 18:17] VITALS: BP 115/72
[2019-09-12 18:28] LABS: ALBUMIN 3.2 g/dL (3.4-5.0); ANION GAP 6 mmol/L (5-15); CALCIUM 9.4 mg/dL (8.5-10.1); CHLORIDE 108 mmol/L (98-107)
--- NOTE | 2019-09-12 18:32 | NUR ---
Benny Paiz Son [phone]
[2019-09-12 18:33] LABS: CREATININE 0.77 mg/dL (0.55-1.02); TROPONIN I < 0.015 ng/mL (0.000-0.045)
--- NOTE | 2019-09-12 18:46 | NUR ---
Attempted to call Jorge. Left message informing him that his mother will be d/c. Call back number left.
--- NOTE | 2019-09-12 18:54 | NUR ---
REPORT TO TR HAYDEN.
--- NOTE | 2019-09-12 21:00 | NUR ---
Patients brittney Alvarado called and advised that patient being discharged.
--- NOTE | 2019-09-12 21:17 | NUR ---
ATTEMPTED TO CALL PT SON AGAIN RIDE IS NOT HERE
== END 2019-09-12 21:27 | disposition home or self-care (01) ==
LOC: ED 17:28
DX: B34.9 Viral infection, unspecified (principal); R94.31 Abnormal electrocardiogram [ECG] [EKG]; I10 Essential (primary) hypertension; E11.9 Type 2 diabetes mellitus without complications; Z86.73 Personal history of transient ischemic attack (TIA), and cerebral infarction without residual deficits
CPT/HCPCS: 36415; 71045; 80048; 82040; 83605; 83880; 84484; 85025; 87040; 93005; 99285

== ENCOUNTER 2019-10-05 16:57 | Emergency (ER) | payer MEDICARE, MEDICAID ==
[~2019-10-05] VITALS: Ht 170.2 cm; Wt 80.0 kg
[2019-10-05 17:29] VITALS: BP 109/52
[2019-10-05 17:52] LABS: BASOPHILS # (AUTO) 0.07 x10^3/uL (0-0.1); BASOPHILS % (AUTO) 1 % (0-1); EOSINOPHILS # (AUTO) 0.25 x10^3/uL (0-0.4); EOSINOPHILS % (AUTO) 3 % (1-7); LYMPHOCYTES # (AUTO) 2.04 x10^3/uL (1-3.4); LYMPHOCYTES % (AUTO) 26 % (22-44); MD NO; MEAN CORPUSCULAR HEMOGLOBIN 30.9 pg (27.0-34.8); MEAN CORPUSCULAR HGB CONC 32.4 g/dL (32.4-35.8); MEAN CORPUSCULAR VOLUME 95.3 fL (80-100); MONOCYTES # (AUTO) 0.71 x10^3/uL (0.2-0.8); MONOCYTES % (AUTO) 9 % (2-9); NEUTROPHILS # (AUTO) 4.77 x10^3/uL (1.8-6.8); NEUTROPHILS % (AUTO) 61 % (42-75); PLATELET COUNT 268 x10^3/uL (130-400); RED BLOOD COUNT 4.08 x10^6/uL (3.82-5.3); RED CELL DISTRIBUTION WIDTH 13.1 % (9.6-15.2)
[2019-10-05 17:58] LABS: ALBUMIN 2.6 g/dL (3.4-5.0); ANION GAP 7 mmol/L (5-15); CHLORIDE 108 mmol/L (98-107); CREATININE 0.59 mg/dL (0.55-1.02)
--- NOTE | 2019-10-05 18:09 | NUR ---
SON CALLED TO PICK PATIENT UP (PATIENT NONVERBAL, NON-MOBILE D/T PRIOR CVA). HE WILL BE HERE BY 6:30P TO PICK PATIENT UP
== END 2019-10-05 19:05 | disposition home or self-care (01) ==
LOC: ED 17:34
DX: B37.9 Candidiasis, unspecified (principal); I10 Essential (primary) hypertension; E11.9 Type 2 diabetes mellitus without complications; Z86.73 Personal history of transient ischemic attack (TIA), and cerebral infarction without residual deficits
CPT/HCPCS: 36415; 80048; 82040; 85025; 99283